=== PATIENT | female | born 1970 | race Caucasian/White ===

== ENCOUNTER → 2019-10-27 16:29 | Outpatient (CLI) | payer OTHER, SELFPAY ==
[2019-10-27 17:27] LABS: Influenza A - CEPHEID Flu A NEGATIVE (NEGATIVE)
[2019-10-27 17:28] LABS: Influenza B - CEPHEID Flu B NEGATIVE (NEGATIVE)
[2019-10-29 02:30] LABS: COVID19 Sendout Not Detected (Not Detected)
== END ==
PROVIDERS: Visit Provider Registered Nurse
DX: Z11.59 Encounter for screening for other viral diseases (principal); R68.89 Other general symptoms and signs
CPT/HCPCS: 87502; 87635

== ENCOUNTER 2020-05-12 16:04 | Emergency (ER) | payer OTHER, SELFPAY ==
[2020-05-12 16:10] VITALS: BP 139/82; PULSE 114; RESP 18; TEMP 37.2; O2SAT 96; BMI 27.4
--- NOTE | 2020-05-12 17:04 | DI.RAD.S_ITS ---
PROCEDURE: XR CHEST 1V INDICATIONS: +Covid, cough, sob TECHNIQUE: One view of the chest was acquired. COMPARISON: None. FINDINGS: Surgical changes and devices: None. Lungs and pleura: Lungs are abnormal with mild patchy pneumonia.. No pleural effusions or pneumothorax. Mediastinum: Mediastinal contours appear normal. Heart size is normal. Bones and chest wall: No suspicious bony lesions. Overlying soft tissues appear unremarkable. IMPRESSION: Mild patchy pneumonia worrisome for atypical/viral etiology. Dictated by: Sunil Mullen M.D. on 05/12/2020 at 18:00 Approved by: Sunil Mullen M.D. on 05/12/2020 at 18:01
[2020-05-12] MEDS: ALBUTEROL HFA PREPACK 1 BOX MISC (17:07)
[2020-05-12] MEDS: LIDOCAINE PATCH 1 EACH ADH..PATCH TOP (17:09)
[2020-05-12] MEDS: ACETAMINOPHEN 325 MG TABLET 650 MG PO (17:09)
[2020-05-12] MEDS: ONDANSETRON 4 MG/2 ML INJ IV (17:10)
[2020-05-12] MEDS: SODIUM CHLORIDE 0.9% 1,000 ML 1000 ML IV (17:10)
[2020-05-12 17:12] LABS: Add Manual Diff / Slide Review NO; Basophils Absolute Auto 0 /uL (0-100); Basophils Percent Auto 0.5 % (0-2); Eosinophils Absolute Auto 0 /uL (0-450); Hematocrit 41.3 % (36-46); Hemoglobin 13.8 g/dL (12.0-16.0); Lymphocytes Absolute Auto 1400 /uL (1100-4500); Lymphocytes Percent Auto 28.6 % (25-40); Mean Corpuscular HGB Conc 33.3 % (30-36); Mean Corpuscular Hemoglobin 28.6 PG (26-34); Mean Corpuscular Volume 85.7 fL (80-100); Monocytes Absolute Auto 400 /uL (0-900); Monocytes Percent Auto 9.2 % (3-14); Neutrophils Absolute Auto 2900 /uL (1500-7000); Neutrophils Percent Auto 60.7 % (50-75); Platelet Count 205 X10^3/uL (150-400); Red Blood Cell Count 4.82 X10^6/uL (4.0-5.2); Red Cell Distribution Width 13.1 % (11.6-14.8); White Blood Cell Count 4.8 X10^3/uL (4.5-11.0)
[2020-05-12 17:19] LABS: Alanine Aminotransferase 31 IU/L (<35); Albumin 3.9 g/dL (3.5-5.0); Albumin Globulin Ratio 1.2 (1.0-2.8); Alkaline Phosphatase 37 U/L (38-126); Aspartate Aminotransferase 43 IU/L (14-36); BUN Creatinine Ratio 7.5 (6-22); Bilirubin Total 0.4 mg/dL (0.2-1.3); Blood Urea Nitrogen 5 mg/dL (7-17); Calcium 8.4 mg/dL (8.4-10.2); Carbon Dioxide 27 mmol/L (22-32); Chloride 107 mmol/L (98-107); Estimated Glomerular Filt Rate > 60.0 mL/min (>60); Globulin 3.3 g/dL (1.7-4.1); Glucose 107 mg/dL (70-100); HEMOLYSIS < 15 (0-50); Potassium 3.7 mmol/L (3.4-5.1); Sodium 137 mmol/L (137-145); Total Protein 7.2 g/dL (6.3-8.2)
[2020-05-12 17:35] LABS: Procalcitonin < 0.05 ng/mL (<0.5)
[2020-05-12 18:31] VITALS: BP 128/78; PULSE 98; RESP 18; O2SAT 96
[2020-05-12 18:32] VITALS: PULSE 104; RESP 18; O2SAT 96
[2020-05-12 18:41] VITALS: PULSE 88; RESP 18; O2SAT 96
--- NOTE | 2020-05-12 18:41 | ED_ITS ---
HPI - SOB/Dyspnea <GIORGIO Desai - Last Filed: 05/12/20 19:39> General Chief Complaint: Shortness of Breath/Dyspnea Stated Complaint: tested Postitive for COVID, cough worse, O2 low Time Seen by Provider: 05/12/20 16:32 Source: patient Mode of arrival: Ambulatory Limitations: no limitations History of Present Illness HPI Narrative: This is a 50 year female, nonsmoker, who has noncontributory medical history presents to ED with chief complain of short of breath, frequent nonproductive cough, and concerned for low O2 sat registered at home as low as 89-91%. Patient reports she had COVID test done 5 days ago which came back positive matter primary care physician's clinic at [facility] by CARLOS Samuels. Patient reports days day 8th since her symptoms started. She reports symptoms as fever, nonproductive cough which seems getting worse, diarrhea for last 2 days, and short of breath. Patient denies blood in her stools or tarry stools. Average she 4-5 episodes of diarrhea in 24 hour period.Patient also has some low back pain since she has been resting and sitting down more than usual. She has been using Tylenol, Robitussin DM for her symptoms and try to hydrate well with rest. Patient is not currently using albuterol inhaler. Patient has medication ready to picker for cough that was prescribed by her PCP. Patient denies chest pain, lightheadedness, calf pain, urinary symptoms. Patient denies history of hypertension, obesity, diabetes, or other cardiopulmonary disease. Related Data Home Medications Medication Instructions Recorded Confirmed No Known Home Medications 10/27/19 10/27/19 Allergies Allergy/AdvReac Type Severity Reaction Status Date / Time No Known Drug Allergies Allergy Verified 10/27/19 16:11 Review of Systems <Hosea MarshallCarloGIORGIO Anderson - Last Filed: 05/12/20 19:39> Review of Systems Narrative: General: Denies (+) fever, chills, fatigue, malaise, sweats. HEENT: Denies sinus pain, ear pain, sore throat, difficulty swallowing, dizziness. Respiratory: [facility] Cardiovascular: Denies chest pain, palpitations, orthopnea, edema. Gastrointestinal: See HPI : Denies dysuria, frequency, incontinence, hematuria, urinary retention. Musculoskeletal: Denies weakness, joint pain or bony pain, (+) back pain. Skin: Denies rash, skin lesions, or other. Neurologic: Denies weakness, headache, numbness, change in speech, confusion, seizures, incoordination. Psychiatric: No concerning psychosocial issues. 12-point review of systems is negative except for those stated above. Patient History <GIORGIO Desai - Last Filed: 05/12/20 19:39> Medical History No significant past medical history Surgical History History of cholecystectomy No pertinent past surgical history Social History Smoking Status: Never smoker Smoking Status: Never smoker Substance Use Type: does not use Exam <GIORGIO Desai - Last Filed: 05/12/20 19:39> Narrative Exam Narrative: GEN: Alert, oriented x 3, well appearing and nourished, and in no acute distress but has frequent nonproductive dry cough during exam. Head: Normal cephalic, atraumatic. No scalp or temporal tenderness, palpable mass or rash. EYES: Pupils are equal, round, and reactive to light and accommodation. Extraocular muscles are intact bilaterally. There is no subconjunctival hem orrhage, exudate and sclera non-icteric. ENT: Hearing grossly intact. Nose without bleeding, purulent discharge or deviation. Mucous membrane slightly dry, no mucosal lesion. Throat without erythema, tonsillar hypertrophy or exudate. Uvula in midline, airway patent. Neck: Trachea in midline. No JVD, non-tender without lymphadenopathy. No masses or thyroid megaly. Supple, non-tender and no meningeal signs. CARDIAC: Normal regular rate and rhythm without murmurs, gallops, or rubs. No ch est wall tenderness. No peripheral edema, cyanosis or pallor. Capillary refill is less than 2 seconds. RESPIRATORY: Lungs are clear but decreased to auscultate bilaterally. Frequent nonproductive cough without wheezes, rales, or rhonchi. No stridor, respiratory distress, increase work of breathing, or accessary muscle used. ABD: Abdomen soft, nontender and non-distended. No guarding or rebound tenderness to palpate. Bowel sounds are normal in all 4 quadrants. There is no palpable masses or organomegaly. EXT: Full painless ROM of all extremities with no loss of sensation, strength, effusion or edema. SKIN: Warm, dry, normal color for patient. No erythema, lesions or rash over visible areas. BACK: Nontender without deformity or crepitance. No flank tenderness. NEUROLOGICAL: Alert and oriented to place, time and person. Sensation and motor function intact bilaterally. No facial droops, dysphasia. PSYCHIATRIC: Good judgement and reason, without hallucinations, abnormal affect or abnormal behaviors during the examination. Patient is not suicidal. Initial Vital Signs Initial Vital Signs: Vital Signs Temperature 99.0 F 05/12/20 16:10 Pulse Rate 114 H 05/12/20 16:10 Respiratory Rate 18 05/12/20 16:10 Blood Pressure 139/82 05/12/20 16:10 Pulse Oximetry 96 05/12/20 16:10 <Nenita Swanson DO - Last Filed: 05/16/20 08:11> Initial Vital Signs Initial Vital Signs: Vital Signs Temperature 99.0 F 05/12/20 16:10 Pulse Rate 114 H 05/12/20 16:10 Respiratory Rate 18 05/12/20 16:10 Blood Pressure 139/82 05/12/20 16:10 Pulse Oximetry 96 05/12/20 16:10 Scores <GIORGIO Desai - Last Filed: 05/12/20 19:39> GCS Raina coma scale eye opening: Spontaneous [place] coma scale verbal response: Orientated [place] coma scale motor response: Obey commands [place] coma scale total score: 15 qSOFA Altered Mental Status (GCS <15): No Respiratory rate greater than/equal to 22: No Systolic blood pressure less than or equal to 100: No qSOFA Total: 0 0-1 Not High Risk 1-3 High risk Course <GIORGIO Desai - Last Filed: 05/12/20 19:39> Orders Ordered: Discontinued Medications Acetaminophen (Tylenol) 650 mg PO NOW ONE Stop: 05/12/20 17:03 Last Admin: 05/12/20 17:09 Dose: 650 mg Documented by: BTONER Albuterol (Ventolin Hfa Prepack) 1 box [facility] SEEINSTR ONE Stop: 05/12/20 17:03 Last Admin: 05/12/20 17:07 Dose: 1 box Documented by: LINDSEY Sodium Chloride (Normal Saline 0.9%) 1,000 mls @ 1,000 mls/hr IV BOLUS ONE Stop: 05/12/20 18:01 Last Infusion: 05/12/20 18:34 Dose: 0 mls/hr Documented by: Admin: 05/12/20 17:10 Dose: 1,000 mls/hr Documented by: JONATHAN Lidocaine (Lidoderm) 1 each TOP NOW ONE Stop: 05/12/20 17:03 Last Admin: 05/12/20 17:09 Dose: 1 each Documented by: JONATHAN Lidocaine (Lidoderm (Remove Patch)) 1 each TOP BEDTIME MARCO Ondansetron HCl (Zofran) 4 mg IV NOW ONE Stop: 05/12/20 17:03 Last Admin: 05/12/20 17:10 Dose: 4 mg Documented by: JONATHAN Reevaluation(s) Reevaluation #1: Patient is feeling better and inhaler mildly helping with cough and short of breath. Patient ambulated around nursing station with O2 said as lowest at 96% in room air without short of breath. Time: 18:30 Vital Signs Vital signs: Vital Signs - 8 hr 05/12/20 16:10 05/12/20 18:31 05/12/20 18:32 Temperature 99.0 F Pulse Rate 114 H 98 H 104 H Respiratory Rate 18 18 18 Blood Pressure 139/82 128/78 Pulse Oximetry 96 96 96 05/12/20 18:41 Temperature Pulse Rate 88 Respiratory Rate 18 Blood Pressure Pulse Oximetry 96 <Nenita Swanson, DO - Last Filed: 05/16/20 08:11> Orders Ordered: Discontinued Medications Acetaminophen (Tylenol) 650 mg PO NOW ONE Stop: 05/12/20 17:03 Last Admin: 05/12/20 17:09 Dose: 650 mg Documented by: JONATHAN Albuterol (Ventolin Hfa Prepack) 1 box [facility] SEEINSTR ONE Stop: 05/12/20 17:03 Last Admin: 05/12/20 17:07 Dose: 1 box Documented by: LINDSEY Sodium Chloride (Normal Saline 0.9%) 1,000 mls @ 1,000 mls/hr IV BOLUS ONE Stop: 05/12/20 18:01 Last Infusion: 05/12/20 18:34 Dose: 0 mls/hr Documented by: Admin: 05/12/20 17:10 Dose: 1,000 mls/hr Documented by: JONATHAN Lidocaine (Lidoderm) 1 each TOP NOW ONE Stop: 05/12/20 17:03 Last Admin: 05/12/20 17:09 Dose: 1 each Documented by: RIANNAONEAlix Lidocaine (Lidoderm (Remove Patch)) 1 each TOP BEDTIME MARCO Ondansetron HCl (Zofran) 4 mg IV NOW ONE Stop: 05/12/20 17:03 Last Admin: 05/12/20 17:10 Dose: 4 mg Documented by: JONATHAN Vital Signs Vital signs: Vital Signs - 8 hr 05/12/20 16:10 05/12/20 18:31 05/12/20 18:32 Temperature 99.0 F Pulse Rate 114 H 98 H 104 H Respiratory Rate 18 18 18 Blood Pressure 139/82 128/78 Pulse Oximetry 96 96 96 05/12/20 18:41 Temperature Pulse Rate 88 Respiratory Rate 18 Blood Pressure Pulse Oximetry 96 MDM - SOB/Dyspnea <Hosea GIORGIO Norton - Last Filed: 05/12/20 19:39> Differential Diagnosis Differential diagnosis: Likely community acquired pneumonia and other (Covid 19, sepsis, atypical pneumonia) Medical Records Attestation: I reviewed the patient's medical records. Lab Data Attestation: I reviewed the patient's lab results. Result diagrams: 05/12/20 17:00 05/12/20 17:00 Labs: Lab Results 05/12/20 05/12/20 05/12/20 Range/Units 17:00 17:00 17:00 WBC 4.8 (4.5-11.0) X10^3/uL RBC 4.82 (4.0-5.2) X10^6/uL Hgb 13.8 (12.0-16.0) g/dL Hct 41.3 (36-46) % MCV 85.7 (80-100) fL MCH 28.6 (26-34) PG MCHC 33.3 (30-36) % RDW 13.1 (11.6-14.8) % Plt Count 205 (150-400) X10^3/uL Neut % (Auto) 60.7 (50-75) % Lymph % (Auto) 28.6 (25-40) % [place] % (Auto) 9.2 (3-14) % Eos % (Auto) 1.0 L (2-4) % Baso % (Auto) 0.5 (0-2) % Neut # (Auto) 2900 (3910-2146) /uL Lymph # (Auto) 1400 (9291-0551) /uL [place] # (Auto) 400 (0-900) /uL Eos # (Auto) 0 (0-450) /uL Baso # (Auto) 0 (0-100) /uL Sodium 137 (137-145) mmol/L Potassium 3.7 (3.4-5.1) mmol/L Chloride 107 (98-107) mmol/L Carbon Dioxide 27 (22-32) mmol/L BUN 5 L (7-17) mg/dL Creatinine 0.67 (0.52-1.04) mg/dL Estimated GFR > 60.0 (>60) mL/min BUN/Creatinine Ratio 7.5 (6-22) Glucose 107 H (70-100) mg/dL Lactate (0.7-2.1) mmol/L Calcium 8.4 (8.4-10.2) mg/dL Total Bilirubin 0.4 (0.2-1.3) mg/dL AST 43 H (14-36) IU/L ALT 31 (<35) IU/L Alkaline Phosphatase 37 L (38-126) U/L Total Protein 7.2 (6.3-8.2) g/dL Albumin 3.9 (3.5-5.0) g/dL Globulin 3.3 (1.7-4.1) g/dL Albumin/Globulin Ratio 1.2 (1.0-2.8) Procalcitonin < 0.05 (<0.5) ng/mL 05/12/20 Range/Units 17:00 WBC (4.5-11.0) X10^3/uL RBC (4.0-5.2) X10^6/uL Hgb (12.0-16.0) g/dL Hct (36-46) % MCV (80-100) fL MCH (26-34) PG MCHC (30-36) % RDW (11.6-14.8) % Plt Count (150-400) X10^3/uL Neut % (Auto) (50-75) % Lymph % (Auto) (25-40) % [place] % (Auto) (3-14) % Eos % (Auto) (2-4) % Baso % (Auto) (0-2) % Neut # (Auto) (8066-4525) /uL Lymph # (Auto) (3276-2377) /uL [place] # (Auto) (0-900) /uL Eos # (Auto) (0-450) /uL Baso # (Auto) (0-100) /uL Sodium (137-145) mmol/L Potassium (3.4-5.1) mmol/L Chloride (98-107) mmol/L Carbon Dioxide (22-32) mmol/L BUN (7-17) mg/dL Creatinine (0.52-1.04) mg/dL Estimated GFR (>60) mL/min BUN/Creatinine Ratio (6-22) Glucose (70-100) mg/dL Lactate 1.0 (0.7-2.1) mmol/L Calcium (8.4-10.2) mg/dL Total Bilirubin (0.2-1.3) mg/dL AST (14-36) IU/L ALT (<35) IU/L Alkaline Phosphatase (38-126) U/L Total Protein (6.3-8.2) g/dL Albumin (3.5-5.0) g/dL Globulin (1.7-4.1) g/dL Albumin/Globulin Ratio (1.0-2.8) Procalcitonin (<0.5) ng/mL Imaging Data Chest x-ray: Radiologist's Impression: [address] [address] XRay Report Signed Patient: Tawanna Muhammad#: [id number] : 1970Acct:[id number] Age/Sex: 50 / FDate of Service: 05/12/20 Loc: ED Accession Number: [id number] Procedure: XR chest 1V Ordering Provider: Hosea Norton PROCEDURE: XR CHEST 1V INDICATIONS: +Covid, cough, sob TECHNIQUE: One view of the chest was acquired. COMPARISON: None. FINDINGS: Surgical changes and devices: None. Lungs and pleura: Lungs are abnormal with mild patchy pneumonia.. No pleural effusions or pneumothorax. Mediastinum: Mediastinal contours appear normal. Heart size is normal. Bones and chest wall: No suspicious bony lesions. Overlying soft tissues appear unremarkable. IMPRESSION: Mild patchy pneumonia worrisome for atypical/viral etiology. Dictated by: Sunil Mullen M.D. on 05/12/2020 at 18:00 Approved by: Sunil Mullen M.D. on 05/12/2020 at 18:01 [facility] Narrative Medical decision making narrative: This is a 50-year-old female who has known COVID positive and she is on day 8th since the symptoms started. She now has diarrhea for last 2 days in addition to respiratory symptoms with frequent cough and short of breath. Patient's oral mucous membrane was slightly dry. Patient's O2 said maintained 96% and above during ED stay. Patient is afebrile and had used Tylenol greater than 24 hour ago. Lung sounds are clear but decrease in all lobes. There is no increase work of breathing or respiratory distress appreciated. Since patient is not currently using albuterol inhaler, respiratory therapist consulted and administered albuterol inhaler through spacer. Patient received 1 L of normal saline IV fluid given had 2 day duration of frequent. Labs are assuring. No leukocytosis, unremarkable chemistry test, normal lactate and procalcitonin. Chest x-ray indicates mild patchy pneumonia concerns for atypical/viral it etiology which is consistent with COVID 19 illness. Patient felt improved and was able to ambulate around nursing mullins keeping O2 sat at 96% the lowest without increased work of breathing or short of breath. Patient advised to use Tylenol for aches and fever, albuterol inhaler for frequent cough, wheezing, and short of breath. Advised to use cough elixir that has been prescribed by her PCP with hydrocodone which would help with cough and also diarrhea. We discussed strict return precautions and patient verbalized understanding in agreement with treatment plan. <Neinta Swanson, - Last Filed: 05/16/20 08:11> Lab Data Labs: Lab Results 05/12/20 05/12/20 05/12/20 Range/Units 17:00 17:00 17:00 WBC 4.8 (4.5-11.0) X10^3/uL RBC 4.82 (4.0-5.2) X10^6/uL Hgb 13.8 (12.0-16.0) g/dL Hct 41.3 (36-46) % MCV 85.7 (80-100) fL MCH 28.6 (26-34) PG MCHC 33.3 (30-36) % RDW 13.1 (11.6-14.8) % Plt Count 205 (150-400) X10^3/uL Neut % (Auto) 60.7 (50-75) % Lymph % (Auto) 28.6 (25-40) % [place] % (Auto) 9.2 (3-14) % Eos % (Auto) 1.0 L (2-4) % Baso % (Auto) 0.5 (0-2) % Neut # (Auto) 2900 (0862-4564) /uL Lymph # (Auto) 1400 (3184-4478) /uL [place] # (Auto) 400 (0-900) /uL Eos # (Auto) 0 (0-450) /uL Baso # (Auto) 0 (0-100) /uL Sodium 137 (137-145) mmol/L Potassium 3.7 (3.4-5.1) mmol/L Chloride 107 (98-107) mmol/L Carbon Dioxide 27 (22-32) mmol/L BUN 5 L (7-17) mg/dL Creatinine 0.67 (0.52-1.04) mg/dL Estimated GFR > 60.0 (>60) mL/min BUN/Creatinine Ratio 7.5 (6-22) Glucose 107 H (70-100) mg/dL Lactate (0.7-2.1) mmol/L Calcium 8.4 (8.4-10.2) mg/dL Total Bilirubin 0.4 (0.2-1.3) mg/dL AST 43 H (14-36) IU/L ALT 31 (<35) IU/L Alkaline Phosphatase 37 L (38-126) U/L Total Protein 7.2 (6.3-8.2) g/dL Albumin 3.9 (3.5-5.0) g/dL Globulin 3.3 (1.7-4.1) g/dL Albumin/Globulin Ratio 1.2 (1.0-2.8) Procalcitonin < 0.05 (<0.5) ng/mL 05/12/20 Range/Units 17:00 WBC (4.5-11.0) X10^3/uL RBC (4.0-5.2) X10^6/uL Hgb (12.0-16.0) g/dL Hct (36-46) % MCV (80-100) fL MCH (26-34) PG MCHC (30-36) % RDW (11.6-14.8) % Plt Count (150-400) X10^3/uL Neut % (Auto) (50-75) % Lymph % (Auto) (25-40) % [place] % (Auto) (3-14) % Eos % (Auto) (2-4) % Baso % (Auto) (0-2) % Neut # (Auto) (9564-9533) /uL Lymph # (Auto) (6002-6785) /uL [place] # (Auto) (0-900) /uL Eos # (Auto) (0-450) /uL Baso # (Auto) (0-100) /uL Sodium (137-145) mmol/L Potassium (3.4-5.1) mmol/L Chloride (98-107) mmol/L Carbon Dioxide (22-32) mmol/L BUN (7-17) mg/dL Creatinine (0.52-1.04) mg/dL Estimated GFR (>60) mL/min BUN/Creatinine Ratio (6-22) Glucose (70-100) mg/dL Lactate 1.0 (0.7-2.1) mmol/L Calcium (8.4-10.2) mg/dL Total Bilirubin (0.2-1.3) mg/dL AST (14-36) IU/L ALT (<35) IU/L Alkaline Phosphatase (38-126) U/L Total Protein (6.3-8.2) g/dL Albumin (3.5-5.0) g/dL Globulin (1.7-4.1) g/dL Albumin/Globulin Ratio (1.0-2.8) Procalcitonin (<0.5) ng/mL Discharge Plan Departure Patient Disposition: Home Clinical Impression: COVID-19 Instructions: DI for COVID-19 (Suspected or Confirmed ) Activity Restrictions/Additional Instructions: You have been diagnosed with [cough and short of breath from COVID 19 infection. Labs are assuring today. CXR shows mild patchy pneumonia. Your O2 sat lowest in ER during ambulation was 96% and tolerated well. ]. What to do: *Take your medications as directed. Please use albuterol inhaler 2 puffs every 3-4 hours as needed. Please hydrate well. You can use other medications that have been prescribed by her primary care physician for cough. You can use over- the-counter Tylenol 650-1000 mg up to 3 to 4 times a day as needed for fever and aches. *Follow up with your primary care provider in 2-3 days, call for an appointment. Let them know you were seen in the ED and that we asked you to be seen in follow up. *Return to ED if you have any new, worsening, or concerning symptoms, such as [increasing short of breath, low O2 saturation <93%, chest pain, unable to tolerate fluids, fever not managed with Tylenol, near syncope or any acute concerns. Please continue with wearing mass, social distancing, and good hand hygiene.]. Prescriptions: No Action No Known Home Medications RF: 0 Referrals: Latha Samuels PA-C [Non-Staff] - <Nenita Swanson DO - Last Filed: 05/16/20 08:11> Cosign ED Attending Cosjayeature Attestation: I was immediately available in the department for consultation. This documentation has been reviewed and I agree with assessment and plan. Supervised by Nenita Swanson DO
== END 2020-05-12 18:49 | disposition home or self-care (01) ==
PROVIDERS: Emergency Provider Nurse Practitioner Family
DX: U07.1 COVID-19 (principal); R06.02 Shortness of breath; R05 Cough
CPT/HCPCS: 36415; 71045; 80053; 83605; 84145; 85025; 93005; 94640; 99284; J2405